=== PATIENT | female | born 1970 | race American Indian/Alaskan Native ===

== ENCOUNTER 2021-09-10 11:19 | Emergency (ER) | payer MEDICAID ==
[2021-09-10 11:23] VITALS: BP 115/85
[2021-09-10] MEDS ORDERED: traMADol 50 MG TAB PO ONE (12:25)
[2021-09-10] MEDS ORDERED: KETOROLAC 60 MG/2 ML INJ IM ONE (12:25)
[2021-09-10] MEDS ORDERED: dexAMETHasone 4 MG/ML VIAL IM ONE (12:25)
--- NOTE | 2021-09-10 12:26 | Emergency Department Report ---
ED Extremity Problem HPI - General Chief complaint: Extremity Injury, Lower Stated complaint: RT KNEE PAIN Time Seen by Provider: 09/10/21 11:30 Source: patient Mode of arrival: Ambulatory Limitations: No Limitations - History of Present Illness Initial comments: 51-year-old female with history of arthritis presents to the ER today with increasing pain and swelling to her right knee. Patient states that her symptoms started about 2 weeks ago and she states that she is getting worse. She has been taking [id number] ibuprofen without much relief of pain. She states that the pain is worse with ambulating, and movement of the knee. She denies any particular injury, but states that she does do a lot of standing and walking at work. She states that she was diagnosed 2 years ago while living in [place] with arthritis to her right knee but she never followed up with allergy specialist. She reports no skin discoloration around the knee, chest pain, shortness of breath or any additional symptoms at this time MD Complaint: joint swelling, joint paint -: week(s) (2) - Related Data Previous Rx's Medication Instructions Recorded Last Taken Type methylPREDNISolone [Medrol 4MG 4 mg PO DAILY #1 tab.ds.pk 09/10/21 Unknown Rx DOSEPAK (21 tabs)] traMADoL [Ultram] 50 mg PO Q6HR PRN #12 tablet 09/10/21 Unknown Rx Allergies Allergy/AdvReac Type Severity Reaction Status Date / Time No Known Allergies Allergy Unverified 09/10/21 11:20 ED Review of Systems ROS: Stated complaint: RT KNEE PAIN Other details as noted in HPI Comment: All other systems reviewed and negative Constitutional: denies: chills, fever Eyes: denies: eye pain, eye discharge, vision change ENT: denies: ear pain, throat pain, dental pain, hearing loss Respiratory: denies: cough, shortness of breath, wheezing Cardiovascular: denies: chest pain, palpitations Gastrointestinal: denies: abdominal pain, nausea, diarrhea Genitourinary: denies: urgency, dysuria, discharge Musculoskeletal: joint swelling, arthralgia Skin: denies: rash, lesions Neurological: denies: headache, weakness, paresthesias Psychiatric: denies: anxiety, depression ED Past Medical Hx - Past Medical History Hx Arthritis: Yes - Surgical History Additional Surgical History: HERNIA / C SECTION/SHOULDER - Medications Home Medications: Home Medications Medication Instructions Recorded Confirmed Last Taken Type methylPREDNISolone [Medrol 4MG 4 mg PO DAILY #1 tab.ds.pk 09/10/21 Unknown Rx DOSEPAK (21 tabs)] traMADoL [Ultram] 50 mg PO Q6HR PRN #12 tablet 09/10/21 Unknown Rx ED Physical Exam - General Limitations: No Limitations General appearance: alert, in no apparent distress - Head Head exam: Present: atraumatic, normocephalic, normal inspection - Eye Eye exam: Present: normal appearance, PERRL, EOMI Pupils: Present: normal accommodation - Respiratory Respiratory exam: Absent: respiratory distress - Cardiovascular Cardiovascular Exam: Present: regular rate - Expanded Lower Extremity Exam Right Knee exam: Present: tenderness (Mainly anterior ), swelling (mild ), effusion. Absent: full ROM (decreased ), abrasion, laceration, ecchymosis, deformity, crepidus, dislocation, erythema Lower Leg exam: Present: normal inspection. Absent: tenderness, swelling, abrasion, laceration, ecchymosis, deformity, crepidus, dislocation, erythema Neuro vascular tendon exam: Present: no vascular compromise Gait: Positive: observed and limited by pain - Neurological Exam Neurological exam: Present: alert, oriented X3, CN II-XII intact - Psychiatric Psychiatric exam: Present: normal affect, normal mood - Skin Skin exam: Present: intact ED Course Vital Signs 09/10/21 11:22 Temperature 97.8 F Pulse Rate 64 Respiratory 16 Rate Blood Pressure 115/85 O2 Sat by Pulse 99 Oximetry ED Medical Decision Making - Radiology Data Radiology results: report reviewed Patient: FRANCIE DAVIS MR#: [id number] : 1970 Acct:[id number] Age/Sex: 51 / F ADM Date: 09/10/21 Loc: ED Attending Dr: Ordering Physician: WILL MUNIZ Date of Service: 09/10/21 Procedure(s): XR knee 3V RT Accession Number(s): [id number] cc: WILL MUNIZ Fluoro Time In Minutes: XR knee 3V RT INDICATION / CLINICAL INFORMATION: pain/swelling. COMPARISON: None available. FINDINGS: BONES/JOINT(S): No acute fracture or subluxation. Mild osteoarthritis with a small joint effusion. SOFT TISSUES: No significant abnormality. ADDITIONAL FINDINGS: None. Signer Name: Ashok Perez MD Signed: 09/10/2021 12:55 PM Workstation Name: [email or web address] Transcribed By: WALDEMAR Dictated By: Ashok Perez MD Electronically Authenticated By: Ashok Perez MD Signed Date/Time: 09/10/211254 DD/ 54 TD/TT: Critical care attestation.: If time is entered above; I have spent that time in minutes in the direct care of this critically ill patient, excluding procedure time. ED Disposition Clinical Impression: Arthritis of knee, right, Knee effusion, right Disposition: HOME / SELF CARE / HOMELESS Is pt being admited?: No Does the pt Need Aspirin: No Condition: Stable Instructions: Knee Effusion, [id number], Arthritis Additional Instructions: I recommend using cheng wrap and using crutches as discussed. Elevate your leg as often as possible for the next 2-3 days. Take the medrol dose pack and ultram as prescribed to help with pain and swelling. It is important that you follow up with [facility] next week. Return to ED if worse. Prescriptions: methylPREDNISolone [Medrol 4MG DOSEPAK (21 tabs)] 4 mg PO DAILY #1 tab.ds.pk traMADoL [Ultram] 50 mg PO Q6HR PRN #12 tablet PRN Reason: Pain Referrals: KARLEE LEE MD [Staff Physician] - 3-5 Days Forms: Work/School Release Form(ED) Time of Disposition: 13:29 Print Language: SPANISH
--- NOTE | 2021-09-10 12:59 | XRay Report ---
XR knee 3V RT INDICATION / CLINICAL INFORMATION: pain/swelling. COMPARISON: None available. FINDINGS: BONES/JOINT(S): No acute fracture or subluxation. Mild osteoarthritis with a small joint effusion. SOFT TISSUES: No significant abnormality. ADDITIONAL FINDINGS: None. Signer Name: Ashok Perez MD Signed: 09/10/2021 12:55 PM Workstation Name: [email or web address]
== END 2021-09-10 14:09 | disposition home or self-care (01) ==
LOC: ED 11:19
DX: M17.11 Unilateral primary osteoarthritis, right knee (principal); M25.461 Effusion, right knee; Z98.890 Other specified postprocedural states
CPT/HCPCS: 73562; 96372; 99283; J1100; J1885